=== PATIENT | female | born 1995 | race Caucasian/White ===

== ENCOUNTER → 2017-08-30 | Outpatient (CLI) | payer OTHER ==
[~2017-08-30] MED LIST: AMOCLA500 PO; AMOX250CH PO; AMOX50SU PO; ANTOXYBENA OT; BACITO TP; CEFD300 PO; CODACEE120 PO; DEPO INJECTION; LITH300C PO; NEOPOLHCSU OT; QUET25 PO; RXAMOX250S PO; RXNEOPOLHC AS
== END | disposition home or self-care (01) ==
LOC: LAB 19:45
DX: N39.0 Urinary tract infection, site not specified (principal); R10.84 Generalized abdominal pain
CPT/HCPCS: 87086

== ENCOUNTER 2018-04-01 12:46 | Emergency (ER) | payer OTHER ==
[~2018-04-01] VITALS: Ht 160 cm; Wt 81.7 kg
[~2018-04-01 12:46] MED LIST changes: -DEPO INJECTION
== END 2018-04-01 13:50 | disposition home or self-care (01) ==
LOC: ER 12:46
DX: G43.909 Migraine, unspecified, not intractable, without status migrainosus (principal); Z79.899 Other long term (current) drug therapy
CPT/HCPCS: 99282

== ENCOUNTER 2018-07-05 00:52 | Emergency (ER) | payer OTHER ==
[~2018-07-05] VITALS: Ht 162.6 cm; Wt 81.7 kg
[2018-07-05 01:09] LABS: Source, Urine Clean Catch
[2018-07-05] MEDS ORDERED: QUET25 PO (01:11)
[2018-07-05] MEDS ORDERED: LITH300C PO (01:11)
[2018-07-05] MEDS ORDERED: DEPO INJECTION (01:12)
[2018-07-05 01:22] LABS: Bilirubin, Urine Neg (Neg); Blood, Urine 5+ (Neg); Glucose Qualitative, Urine Neg (Neg); Ketones, Urine 1+ (Neg); Leukocyte Esterase, Urine 2+ (Neg); Nitrite, Urine Neg (Neg); Protein, Urine 2+ (Neg); Urobilinogen, Urine NORM (Normal)
[2018-07-05 01:37] LABS: Appearance, Urine Cloudy (Clear); Color, Urine Amber (P-Yellow)
[2018-07-05 01:39] LABS: Bacteria Mod /hpf; Red Blood Cells, Urine TNTC /hpf (0-2); Squamous Epithelial Cells Few /hpf (Few)
== END 2018-07-05 01:55 | disposition home or self-care (01) ==
LOC: ER 00:52
PROVIDERS: Emergency Medicine
DX: N93.9 Abnormal uterine and vaginal bleeding, unspecified (principal); Z79.899 Other long term (current) drug therapy
CPT/HCPCS: 81001; 81025; 87086; 99283

== ENCOUNTER → 2019-05-07 | Outpatient (CLI) | payer OTHER ==
[~2019-05-07] MED LIST changes: +DEPO INJECTION
== END ==
LOC: LAB SHORT 17:39 → LAB 17:39
PROVIDERS: Registered Nurse Community Health
DX: Z12.4 Encounter for screening for malignant neoplasm of cervix (principal)
CPT/HCPCS: G0123

== ENCOUNTER 2021-02-01 11:11 | Emergency (ER) | payer OTHER ==
[~2021-02-01] VITALS: Ht 170.2 cm; Wt 83.9 kg
[2021-02-01] MEDS ORDERED: LAMOTRIGINE100 M1 PO (11:34)
[2021-02-01] MEDS ORDERED: [UNRECOGNIZED DRUG - CODE] PO (11:34)
== END 2021-02-01 13:07 | disposition home or self-care (01) ==
LOC: ER 11:11
DX: R51.9 Headache, unspecified (principal); Z79.899 Other long term (current) drug therapy
CPT/HCPCS: 70450; 99283-25

== ENCOUNTER → 2021-03-05 | Outpatient (CLI) | payer OTHER ==
[~2021-03-05] MED LIST changes: +LAMOTRIGINE100 M1 PO; +[UNRECOGNIZED DRUG - CODE] PO
== END | disposition home or self-care (01) ==
LOC: LAB SHORT 18:13
DX: N39.0 Urinary tract infection, site not specified (principal)
CPT/HCPCS: 87086

== ENCOUNTER → 2023-11-30 | Outpatient (CLI) | payer OTHER ==
[~2023-11-30] MED LIST changes: +Buspirone HCl15 MG PO; +LITH300ER PO; +OXYC10TA19 PO; -[UNRECOGNIZED DRUG - CODE] PO
== END ==
LOC: LAB 19:43 → LAB SHORT 19:43
DX: R31.9 Hematuria, unspecified (principal)
CPT/HCPCS: 87086

== ENCOUNTER → 2025-02-26 | Outpatient (CLI) | payer OTHER ==
[2025-02-26 15:10] LABS: Candida glabrata-krusei, PCR NOT DETECTED (NOT DETECT)
[2025-02-26 15:11] LABS: Bacterial Vaginosis PCR Positive (NEGATIVE); Candida Group, PCR DETECTED (NOT DETECT)
== END | disposition home or self-care (01) ==
LOC: LAB SHORT 09:44 → LAB 09:44
PROVIDERS: Advanced Practice Midwife
DX: Z01.419 Encounter for gynecological examination (general) (routine) without abnormal findings (principal); N76.0 Acute vaginitis
CPT/HCPCS: 81515; G0123

== ENCOUNTER → 2025-03-28 | Outpatient (CLI) | payer OTHER ==
[2025-03-28 15:13] LABS: Candida glabrata-krusei, PCR NOT DETECTED (NOT DETECT)
[2025-03-28 15:22] LABS: Bacterial Vaginosis PCR Positive (NEGATIVE); Candida Group, PCR DETECTED (NOT DETECT)
== END | disposition home or self-care (01) ==
LOC: LAB 13:08 → LAB SHORT 13:08
PROVIDERS: Advanced Practice Midwife
DX: N76.0 Acute vaginitis (principal)
CPT/HCPCS: 81515

== ENCOUNTER → 2025-04-26 | Outpatient (CLI) | payer OTHER ==
[2025-04-26 13:16] LABS: Bacterial Vaginosis PCR Negative (NEGATIVE); Candida Group, PCR NOT DETECTED (NOT DETECT); Candida glabrata-krusei, PCR NOT DETECTED (NOT DETECT)
== END | disposition home or self-care (01) ==
LOC: LAB 10:53 → LAB SHORT 10:53
PROVIDERS: Advanced Practice Midwife
DX: N76.0 Acute vaginitis (principal)
CPT/HCPCS: 81515